=== PATIENT | male | born 1980 | race Caucasian/White ===

== ENCOUNTER → 2016-06-14 | Outpatient (CLI) | payer BC ==
--- NOTE | 2016-06-23 09:07 | SS ---
ADMIT: 06/14/2016 RM/LOC: [facility] MR#: [id number] [id number] CAROLYN CHOUDHURY [address] [place] [address] Sleep Study SEX: M AGE: 35 : 1980 STUDY DATE: 06/14/2016 CLINICAL HISTORY: A 35-year-old male, body mass index of 32.5, 220 pounds, 69 inches tall, with symptoms of snoring, daytime sleepiness, undergoing evaluation for obstructive sleep apnea. HOME SLEEP STUDY FINDINGS: RECORDING INFORMATION: Recording date is 06/14/2016. Bedtime starts 12:18 a.m., bedtime ends 6:51 a.m. Time in bed 6 hours 33 minutes. NOX-T3 home sleep study device was used with good signal quality. BREATHING: Mild obstructive sleep apnea with apnea-hypopnea index of 7.3. OXYGEN SATURATION: Average oxygen saturation is 93%. CARDIAC: Average pulse is 71 beats per minute. BODY POSITION: During the study, patient slept in the supine and lateral position. IMPRESSION/PLAN: Mild obstructive sleep apnea with apnea-hypopnea of 7.3. RECOMMENDATIONS: Include in-lab CPAP titration. Alternatively, auto PAP from 4-20 cm can be used. Recommend losing weight, avoiding sedatives or alcohol, refrain from driving if excessively sleepy. Clinical correlation needed. CPAP titration and therapy are recommended. Austin Trejo MD/ ellenl JOB #: [id number] CC: Yazan New, Attending Physician Tariq Bryant MD, Family Physician Tariq Bryant MD
== END | disposition home or self-care (01) ==
LOC: CARD 11:29
DX: R06.83 Snoring (principal); G47.33 Obstructive sleep apnea (adult) (pediatric)